=== PATIENT | female | born 1965 | race Caucasian/White ===

== ENCOUNTER 2016-07-09 19:18 | Observation (INO) | payer OTHER ==
[~2016-07-09] VITALS: Ht 160 cm; Wt 78.0 kg
--- NOTE | 2016-07-09 19:49 | DIAGNOSTIC IMAGING REPORT ---
PROCEDURE: CT HEAD WITHOUT CONTRAST INDICATION: STROKE TECHNIQUE: Axial CT images were acquired through the head. Coronal and sagittal reformations were created. COMPARISON: None. FINDINGS: No intracranial hemorrhage or extraaxial fluid collections. Ventricles are normal in size, shape and position. There is no mass, mass effect or midline shift. In the left frontal white matter, there are a few ill-defined areas of hypodensity. In the left thalamus/posterior limb internal capsule, there is a focal curvilinear lacunar infarct. More remote lacunar infarct is also seen in the left basal ganglia/external capsule and a questionable lacuna in the right basal ganglia. The aranda-white matter differentiation is normal. No cortical defects. The calvarium is intact. The paranasal sinuses and mastoid air cells are normally aerated. The extracranial soft tissues and orbits are normal. IMPRESSION: 1. A few ill-defined white matter hypodensities in the left frontal lobe suspicious for acute/subacute small-vessel ischemic events. 2. There are at least two well-defined areas, one in left thalamus/internal capsule, and the other left basal ganglia/external capsule suggestive of remote lacunar infarcts. 3. No evidence of acute hemorrhage or mass effect. 4. Findings discussed with Dr. Menjivar at [address] scans at this facility use dose modulation, iterative reconstruction, and/or weight-based dosing when appropriate to reduce radiation dose to as low as reasonably achievable.
--- NOTE | 2016-07-09 20:11 | DIAGNOSTIC IMAGING REPORT ---
PROCEDURE: XR CHEST 1 VIEW INDICATION: STROKE TECHNIQUE: Single view chest. 1957 hours COMPARISON: None FINDINGS: Low lung volumes. Normal cardiomediastinal contour and central vessels. Strandy retrocardiac density. Otherwise clear lungs. No effusion or pneumothorax. Intact osseous structures. IMPRESSION: 1. Low lung volumes. 2. Probable retrocardiac atelectasis versus consolidation. Correlate clinically.
--- NOTE | 2016-07-09 21:03 | ED NURSING NOTES ---
Clinical Report - Nurses [facility] [address] [place] [address] 07/09/2016 19:20 [id number] Triage time 19:23. Acuity: LEVEL 2. Chief Complaint: WEAKNESS and IMPAIRED SPEECH and (slurred speech). ANDREI COMA SCORE: Andrei Coma Scale: 15- eyes open spontaneously (4); best verbal response- oriented x 4 (5); best motor response- obeys commands (6). --19:30 Andriy Jaime R.N. 19:23 07/09/16. BP: 154/79. HR: 81. RR: 18. O2 saturation: 96%. Temp: 98.2 F (oral). Pain level now: 0/10. --19:30 Andriy Jaime R.N. Height/Length: 63 inches Per Patient. --19:30 Andriy Jaime R.N.. Weight: 79.7 kg measured. BMI: 31.1. --19:41 Andriy Jaime R.N. Medications Albuterol Sulfate Inhalation. MetFORMIN HCl Oral. NovoLIN N Subcutaneous 30 units , Every AM and PM. --20:50 Andriy Jaime R.N. Allergies Codeine. Iodine. --20:50 Andriy Jaime R.N. History Arrived by private vehicle. Historian: patient and family. Accompanied by family. This started today. Patient was last known well (1830 PM). ( with difficulty balancing, per daughter). SOCIAL HX: Never smoker. No alcohol use or drug use. --19:30 Andriy Jaime R.N. PROBLEMS: CVA - Cerebrovascular Accident. Fall. Dizziness. Candidiasis. Kidney cancer. Back Pain. Scoliosis. Type 1 DM. --20:50 Andriy Jaime R.N. Hypertension. --23:16 Andriy Jaime R.N. ADDITIONAL SURGERIES: Hysterectomy. Nephrectomy [2001]. --20:50 Andriy Jaime R.N. Interventions ID band on patient. To treatment room. --19:30 Andriy Jaime R.N. PHYSICAL ASSESSMENT To room via wheelchair. GENERAL / NEURO / PSYCH: Awake. Oriented X 4. Alert. Mild slurred speech. CVS: Capillary refill less than 2 seconds. SKIN: Skin is warm and dry. --19:43 Andriy Jaime R.N. ( Patient passes swallow study without difficulty, no coughing or choking, no signs of distress or difficulty swallowing water.). --20:04 Andriy Jaime R.N. ( IV does not draw suffiently for blood draw. Lab has been called and blood draw requested.). --20:07 Andriy Jaime R.N. GENERAL / NEURO / PSYCH: NIH Stroke Scale: score 3. Performed at 2034. Pt and patient's daughter state that facial droop is baseline from her previous stroke. Level of Consciousness: alert (0). LOC Questions: both (0). LOC Commands: both (0). Best gaze: normal (0). Visual field loss: none (0). Facial palsy: partial (2). Motor arm: no drift right arm (0) and no drift left arm (0). Motor leg: no drift right leg (0) and no drift left leg (0). Limb ataxia: none (0). Sensory loss: none (0). Aphasia: none (0). Dysarthria: mild to moderate (1). Extinction and inattention: none (0). --20:45 Andriy Jaime R.N. ( Lab has come to draw the patient's blood, and has already left the ER with it in their possession.). --20:46 Andriy Jaime R.N. CVS: Normal sinus rhythm noted. --21:10 Andriy Jaime R.N. ( Patient on terra cotta setter on arrival). --21:10 Andriy Jaime R.N. NURSING PROGRESS NOTES biodiesel technology manager, pulse oximeter and NIBP monitor placed on patient. Patient gowned. Head of bed elevated. Reassurance given. Two patient identifiers checked. Call light placed in reach. Side rails up x 1. Bed placed in lowest position. Brakes of bed on. Patient ready for evaluation- chart flagged. --19:31 Andriy Jaime R.N. Patient ready for evaluation- chart flagged. --19:31 Andriy Jaime R.N. ( at 1925-Code stroke called. 1928-Patient taken to CT scan.). --19:44 Andriy Jaime R.N. Point of care testing: performed by nurse. Glucose: 251. --19:49 Andriy Jaime R.N. 19:54 07/09/2016 Site #1 started via IV in the left hand with an 20g angiocath, with aseptic technique; three attempts. Saline lock flushed with 10 mL saline (Started by LILI Rogers (incendiaries supervisor)). --19:54 Andriy Jaime R.N. ( Xray present with patient). --19:54 Andriy Jaime R.N. EKG time: (1945). EKG was ordered, performed by a tech and shown to the ED physician. --20:03 Chago Bloom, ER Supervisor Of Communications ( Daughter of patient states that the patient's slurred speech is better now than what it was at 1830 today when she first noticed it.). --20:51 Andriy Jaime R.N. ( patient urinated in bedside commode, assisted by nurse). --21:26 Andriy Jaime R.N. ( I gave the patient half of a sandwich with a diet sprite to drink, with the approval of Dr. Menjivar.). --21:26 Andriy Jaime R.N. Patient waiting for radiology results. --21:41 Andriy Jaime R.N. ( Ultra Sound at patient's bedside). --22:25 Andriy Jaime R.N. ( US at bedside completed). --23:10 Andriy Jaime R.N. Care transferred and report given (LILI Amaral (2nd floor)). --23:25 Andriy Jaime R.N. DISPOSITION / DISCHARGE Departure time: 23:26. Condition at departure: stable. Admitted to Acute Care. Transported via stretcher by transport team. Report was given to a nurse. Report included patient's care, treatment, medications, reviewed medication reconcilliation, and condition (including any recent changes or anticipated changes). All questions were answered. Report was acknowledged. (LILI Amaral). Patient's personal items include: shirt, pants and glasses; items were transported with the patient. --23:27 Andriy Jaime R.N. 23:26 07/09/16. BP: 149/106. HR: 75. RR: 20 (regular and unlabored). O2 saturation: 100% on room air. --23:27 Andriy Jaime R.N. Locked/Released at 07/09/2016 23:28 by Andriy Jaime R.N.
--- NOTE | 2016-07-09 21:03 | ED CLINICAL REPORT ---
Clinical Report - Physicians/Mid Levels [facility] [address] [place] [address] 07/09/2016 19:20 Patient: BRETT WALTON Time Seen: 19:29 Jul 09 2016. Arrived- By private vehicle. Historian- patient and family. CPT: ER phys charges level 5 plus (#044428). EKG interpretation (#[id number]). HISTORY OF PRESENT ILLNESS Chief Complaint: WEAKNESS, DIFFICULTY WALKING and IMPAIRED SPEECH. CODE STROKE CALLED. This started just prior to arrival and is still present. The patient has had weakness. She has had difficulty with speech. She has had difficulty walking. At its maximum deficit described as moderate. When seen in the E.D.,deficit described as moderate. No dizziness, altered mental status, seizure or blackouts. Usually is alert and oriented X3 and has normal mobility. (Has chronic right facial droop.). Similar symptoms previously: Milder (2 years ago). Hospitalized. Evaluation/treatment- Raad Rankin. Diagnosis: CVA. Recent medical care: Not recently seen/assessed. REVIEW OF SYSTEMS No fever, headache, head injury, chest pain or difficulty breathing. No cough, sputum production, sore throat or throat or abdominal pain. No diarrhea, black stools, difficulty with urination, skin rash or joint pain. No vomiting, diabetic symptoms or easy bruising. The patient has had difficulty walking. All systems otherwise negative, except as recorded above. 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 Medications: Albuterol Sulfate Inhalation. MetFORMIN HCl Oral. NovoLIN N Subcutaneous 30 units , Every AM and PM. Allergies: Codeine. Iodine. SOCIAL HISTORY Never smoker. No alcohol use or drug use. ADDITIONAL NOTES The nursing notes have been reviewed. PHYSICAL EXAM Vital Signs: 07/09/2016 19:23 BP: 154/79. HR: 81. RR: 18. O2 saturation: 96%. Temp: 98.2 F. Pain level now: 0/10. Appearance: Alert. No acute distress. Head: Head atraumatic. ENT: Normal ENT inspection. Airway intact. Pharynx normal. Neck: Normal inspection. Neck supple. No meningeal signs or carotid bruit. CVS: Normal heart rate and rhythm. Heart sounds normal. Pulses normal. Respiratory: No respiratory distress. Breath sounds normal. Abdomen: Soft and nontender. Back: Normal inspection. Skin: Skin warm. Normal skin color. No rash. Extremities: Extremities exhibit normal ROM. No lower extremity edema. Neuro: NIH Stroke Scale: score 2. Level of Consciousness: alert (0). LOC Questions: both (0). LOC Commands: both (0). Best gaze: normal (0). Visual field loss: none (0). Facial palsy: normal (0) and (chronic and none new). Motor arm: no drift right arm (0) and no drift left arm (0). Motor leg: no drift right leg (0) and no drift left leg (0). Limb ataxia: none (0). Sensory loss: none (0). Aphasia: mild to moderate (1). Dysarthria: mild to moderate (1). Extinction and inattention: none (0). No depression of the gag reflex. (Pt has chronic right facial droop that is residual from prior CVA. Pt and daughter says this is no worse than baseline.). LABS, X-RAYS, AND EKG EKG: Normal sinus rhythm. Chest X-ray: Normal Chest X-Ray. CT Head: (Scattered areas of hypodensity right frontal white matter. Evidence old CVA in left internal capsule and basal ganglia. No edema or hemorrhage.). Head CT performed without contrast. The study was interpreted by the radiologist and discussed with the radiologist. Laboratory Tests: [id number]: (HILARY: 07/10/2016 05:29) ( MsgRcvd 07/10/2016 05:51) Final results Test Result Flag Units (Reference) CALCULATED A1C 8.6 H % (4.5-6.2) The [place] [employer] recommends that aprimary goal of therapy should be a HbA1c of <7% and thatphysicians should reevaluate the treatment regimen inpatients with HbA1c values consistently >8%. ESTIMATED AVERAGE GLUCOSE 200 mg/dL BMP: (HILARY: 07/10/2016 05:29) ( MsgRcvd 07/10/2016 06:03) Final results Test Result Flag Units (Reference) GLUCOSE 252 H mg/dL (70-110) BUN 16 mg/dL (7-18) CREATININE 0.7 mg/dL (0.6-1.3) Estimated GFR >60 mL/min Estimated GFR- >60 mL/min Note: Persistent reduction over 3 months in eGFR<60 mL/min/1.73 m2 defines CKD. Patients with eGFR values>=60 mL/min/1.73 m2 may also have CKD if evidence ofpersistent proteinuria. Additional information may be foundat www.kidney.org. SODIUM 138 mmol/L (136-145) POTASSIUM 3.7 mmol/L (3.5-5.1) CHLORIDE 101 mmol/L (98-107) CARBON DIOXIDE 28 mmol/L (21-32) CALCIUM 9.2 mg/dL (8.5-10.1) CHOLESTEROL 176 mg/dL (140-200) TRIGLYCERIDES 136 mg/dL (30-200) HDL CHOLESTEROL 44 mg/dL (32-96) LDL,CALCULATED 105 mg/dL Normal range for LDL by direct measurement is 66-178The LDL reported is a calculated value and may approximatea direct measurement. CHOL/HDL 4.0 LDL/HDL 2.4 CORONARY RISK FACTOR 0.8 (0.4-1.0) CBC w Diff: (HILARY: 07/09/2016 20:30) ( MsgRcvd 07/09/2016 20:45) Final results Test Result Flag Units (Reference) WHITE BLOOD COUNT 6.1 K/uL (4.5-11.5) RED BLOOD COUNT 4.33 M/uL (4.00-5.20) HEMOGLOBIN 13.4 gm/dL (12.0-16.0) HEMATOCRIT 39.4 % (36.0-46.0) MEAN CELL VOLUME 91 fL (80-100) MEAN CORPUSCULAR HGB 31 pg (26-34) MEAN CORPUSCULAR HGB CONC 34 g/dL (31-37) RED CELL DISTRIBUTION WIDTH 13.2 % (11.6-14.8) PLATELET COUNT 252 K/uL (150-400) NEUTROPHIL % 50.9 % (50-75) LYMPH % 38.9 % (25-40) MONO % 6.6 % (3-14) EOSINOPHIL % 2.9 % (0-4) BASOPHIL % 0.7 % (0-2) CHEM 13 PANEL: (HILARY: 07/09/2016 20:30) ( MsgRcvd 07/09/2016 21:03) Final results Test Result Flag Units (Reference) GLUCOSE 256 H mg/dL (70-110) BUN 16 mg/dL (7-18) CREATININE 0.7 mg/dL (0.6-1.3) Estimated GFR >60 mL/min Estimated GFR- >60 mL/min Note: Persistent reduction over 3 months in eGFR<60 mL/min/1.73 m2 defines CKD. Patients with eGFR values>=60 mL/min/1.73 m2 may also have CKD if evidence ofpersistent proteinuria. Additional information may be foundat www.kidney.org. SODIUM 139 mmol/L (136-145) POTASSIUM 3.7 mmol/L (3.5-5.1) CHLORIDE 102 mmol/L (98-107) CARBON DIOXIDE 29 mmol/L (21-32) CALCIUM 9.5 mg/dL (8.5-10.1) TOTAL PROTEIN 6.9 g/dL (6.4-8.2) ALBUMIN 3.6 g/dL (3.3-5.0) BILIRUBIN, TOTAL 0.7 mg/dL (0.0-1.0) ALKALINE PHOSPHATASE 114 U/L (46-116) AST (SGOT) 11 L U/L (15-37) ALT (SGPT) 21 U/L (12-78) CPK 38 U/L (24-260) MAGNESIUM 1.7 L mg/dL (1.8-2.4) TROPONIN I <0.05 L ng/mL (0.00-1.5) TROPONIN REFERENCE RANGE:<0.1 NEGATIVE0.1-1.5 INDETERMINANT>1.5 POSITIVE . PROGRESS AND PROCEDURES Course of Care: 20:10 07/09/16. Pt feels she does not have any deficit now and daughter says her speech is better now. Pt speech is improved since admission. TPA not considered due to improved exam and low NIH stroke scale. Carotid doppler pending. Discussed case with on-call health care provider, (Lola). Reviewed test results. Agreed upon treatment plan and decision to admit. Health care provider will see patient in ED. Patient/family counseled. Old medical records ordered. Disposition orders written. Disposition: Admitted to Acute Care. 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 Uncontrolled essential hypertension. IDDM. (Electronically signed by Terrell Menjivar MD 07/10/2016 11:17)
--- NOTE | 2016-07-09 21:03 | ED ORDER SUMMARY ---
..... Patient: BRETT WALTON [facility] VisitID: [id number] [address] [place] [address] 50y, F Registration Date/Time: 07/09/2016 ORDER SHEET Weight: 79.7 kg (measured) Allergies: Codeine, Iodine GENERAL ORDERS: CT Head wo Cont Urgent (19:30 07/09/2016 DDean R.N. verbal order read back to Darling ABRAMS) (Ack 19:33 Carlos) (19:39 Mel) Chest 1V Urgent (19:31 07/09/2016 Darling ABRAMS) (Ack 19:32 Carlos) (20:07 Mel) Crew Chief (Continuous) (19:31 07/09/2016 Darling ABRAMS) (Ack 19:33 Carlos) (19:41 DDavis R.N.) Cardiac Panel Stat (19:07/09/2016 Darling ABRAMS) (Ack 19:32 Carlos) (20:49 DDavis R.N.) Pulse oximeter (19:31 07/09/2016 Darling ABRAMS) (Ack 19:33 Carlos) (19:41 DDavis R.N.) EKG - ER Stat (19:07/09/2016 Darling ABRAMS) (Ack 19:33 Carlos) (19:45 CHategekimana) US Carotid Doppler Bilat Urgent (20:55 07/09/2016 Darling ABRAMS) (Ack 20:59 Carlos) MEDICATION ORDERS: IV FLUIDS: IV Saline Lock (19:07/09/2016 Darling ABRAMS) (Ack 19:41 DDavis R.N.) (19:54 DDavis R.N.) ORDER SHEET NOTES: [Electronically signed by Andriy Jaime R.N. (23:28 07/09/2016)] [Electronically signed by Terrell Menjivar MD (11:17 07/10/2016)] [Electronically locked/signed by Andriy Jaime R.N. (23:28 07/09/2016)]
--- NOTE | 2016-07-09 21:03 | ED NURSING NOTES ---
Clinical Report - Nurses [facility] [address] [place] [address] 07/09/2016 19:20 [id number] Triage time 19:23. Acuity: LEVEL 2. Chief Complaint: WEAKNESS and IMPAIRED SPEECH and (slurred speech). ANDREI COMA SCORE: Andrei Coma Scale: 15- eyes open spontaneously (4); best verbal response- oriented x 4 (5); best motor response- obeys commands (6). --19:30 Andriy Jaime R.N. 19:23 07/09/16. BP: 154/79. HR: 81. RR: 18. O2 saturation: 96%. Temp: 98.2 F (oral). Pain level now: 0/10. --19:30 Andriy Jaime R.N. Height/Length: 63 inches Per Patient. --19:30 Andriy Jaime R.N.. Weight: 79.7 kg measured. BMI: 31.1. --19:41 Andriy Jaime R.N. Medications Albuterol Sulfate Inhalation. MetFORMIN HCl Oral. NovoLIN N Subcutaneous 30 units , Every AM and PM. --20:50 Andriy Jaime R.N. Allergies Codeine. Iodine. --20:50 Andriy Jaime R.N. History Arrived by private vehicle. Historian: patient and family. Accompanied by family. This started today. Patient was last known well (1830 PM). ( with difficulty balancing, per daughter). SOCIAL HX: Never smoker. No alcohol use or drug use. --19:30 Andriy Jaime R.N. PROBLEMS: CVA - Cerebrovascular Accident. Fall. Dizziness. Candidiasis. Kidney cancer. Back Pain. Scoliosis. Type 1 DM. --20:50 Andriy Jaime R.N. Hypertension. --23:16 Andriy Jaime R.N. ADDITIONAL SURGERIES: Hysterectomy. Nephrectomy [2001]. --20:50 Andriy Jaime R.N. Interventions ID band on patient. To treatment room. --19:30 Andriy Jaime R.N. PHYSICAL ASSESSMENT To room via wheelchair. GENERAL / NEURO / PSYCH: Awake. Oriented X 4. Alert. Mild slurred speech. CVS: Capillary refill less than 2 seconds. SKIN: Skin is warm and dry. --19:43 Andriy Jaime R.N. ( Patient passes swallow study without difficulty, no coughing or choking, no signs of distress or difficulty swallowing water.). --20:04 Andriy Jaime R.N. ( IV does not draw suffiently for blood draw. Lab has been called and blood draw requested.). --20:07 Andriy Jaime R.N. GENERAL / NEURO / PSYCH: NIH Stroke Scale: score 3. Performed at 2034. Pt and patient's daughter state that facial droop is baseline from her previous stroke. Level of Consciousness: alert (0). LOC Questions: both (0). LOC Commands: both (0). Best gaze: normal (0). Visual field loss: none (0). Facial palsy: partial (2). Motor arm: no drift right arm (0) and no drift left arm (0). Motor leg: no drift right leg (0) and no drift left leg (0). Limb ataxia: none (0). Sensory loss: none (0). Aphasia: none (0). Dysarthria: mild to moderate (1). Extinction and inattention: none (0). --20:45 Andriy Jaime R.N. ( Lab has come to draw the patient's blood, and has already left the ER with it in their possession.). --20:46 Andriy Jaime R.N. CVS: Normal sinus rhythm noted. --21:10 Andriy Jaime R.N. ( Patient on telemetry monitor on arrival). --21:10 Andriy Jaime R.N. NURSING PROGRESS NOTES cardiac monitor technician, pulse oximeter and NIBP monitor placed on patient. Patient gowned. Head of bed elevated. Reassurance given. Two patient identifiers checked. Call light placed in reach. Side rails up x 1. Bed placed in lowest position. Brakes of bed on. Patient ready for evaluation- chart flagged. --19:31 Andriy Jaime R.N. Patient ready for evaluation- chart flagged. --19:31 Andriy Jaime R.N. ( at 1925-Code stroke called. 1928-Patient taken to CT scan.). --19:44 Andriy Jaime R.N. Point of care testing: performed by nurse. Glucose: 251. --19:49 Andriy Jaime R.N. 19:54 07/09/2016 Site #1 started via IV in the left hand with an 20g angiocath, with aseptic technique; three attempts. Saline lock flushed with 10 mL saline (Started by LILI Rogers (hot dip tinning supervisor)). --19:54 Andriy Jaime R.N. ( Xray present with patient). --19:54 Andriy Jaime R.N. EKG time: (1945). EKG was ordered, performed by a tech and shown to the ED physician. --20:03 Chago Bloom, ER Pipe Fitter Supervisor ( Daughter of patient states that the patient's slurred speech is better now than what it was at 1830 today when she first noticed it.). --20:51 Andriy Jaime R.N. ( patient urinated in bedside commode, assisted by nurse). --21:26 Andriy Jaime R.N. ( I gave the patient half of a sandwich with a diet sprite to drink, with the approval of Dr. Menjivar.). --21:26 Andriy Jaime R.N. Patient waiting for radiology results. --21:41 Andriy Jaime R.N. ( Ultra Sound at patient's bedside). --22:25 Andriy Jaime R.N. ( US at bedside completed). --23:10 Andriy Jaime R.N. Care transferred and report given (LILI Amaral (2nd floor)). --23:25 Andriy Jaime R.N. DISPOSITION / DISCHARGE Departure time: 23:26. Condition at departure: stable. Admitted to Acute Care. Transported via stretcher by transport team. Report was given to a nurse. Report included patient's care, treatment, medications, reviewed medication reconcilliation, and condition (including any recent changes or anticipated changes). All questions were answered. Report was acknowledged. (LILI Amaral). Patient's personal items include: shirt, pants and glasses; items were transported with the patient. --23:27 Andriy Jaime R.N. 23:26 07/09/16. BP: 149/106. HR: 75. RR: 20 (regular and unlabored). O2 saturation: 100% on room air. --23:27 Andriy Jaime R.N. Locked/Released at 07/09/2016 23:28 by Andriy Jaime R.N.
--- NOTE | 2016-07-09 21:03 | ED ORDER SUMMARY ---
..... Patient: BRETT WALTON OrderSheet [facility] VisitID: [id number] [address] [place] [address] 50y, F Registration Date/Time: 07/09/2016 ORDER SHEET Weight: 79.7 kg (measured) Allergies: Codeine, Iodine GENERAL ORDERS: CT Head wo Cont Urgent (19:30 07/09/2016 DDean R.N. verbal order read back to Darling ABRAMS) (Ack 19:33 Carlos) (19:39 Mel) Chest 1V Urgent (19:31 07/09/2016 Darling ABRAMS) (Ack 19:32 Carlos) (20:07 Mel) Surgical Assistant Certified (Continuous) (19:31 07/09/2016 Darling ABRAMS) (Ack 19:33 Carlos) (19:41 DDavis R.N.) Cardiac Panel Stat (19:07/09/2016 Darling ABRAMS) (Ack 19:32 Carlos) (20:49 DDavis R.N.) Pulse oximeter (19:31 07/09/2016 Darling ABRAMS) (Ack 19:33 Carlos) (19:41 DDavis R.N.) EKG - ER Stat (19:07/09/2016 Darling ABRAMS) (Ack 19:33 Carlos) (19:45 CHategekimana) US Carotid Doppler Bilat Urgent (20:55 07/09/2016 Darling ABRAMS) (Ack 20:59 Carlos) MEDICATION ORDERS: IV FLUIDS: IV Saline Lock (19:07/09/2016 Darling ABRAMS) (Ack 19:41 DDavis R.N.) (19:54 DDavis R.N.) ORDER SHEET NOTES: [Electronically signed by Andriy Jaime R.N. (23:28 07/09/2016)] [Electronically signed by Terrell Menjivar MD (11:17 07/10/2016)] [Electronically locked/signed by Andriy Jaime R.N. (23:28 07/09/2016)]
[2016-07-09 22:05] VITALS: BP 161/76
--- NOTE | 2016-07-09 22:48 | Progress Note ---
Subjective General Admission History and Physical Examination Patient Name: Luz Viera Admission Date: July 09, 2016 Primary Care Provider: Unknown Attending Physician: Basil Davila M.D. Admitting Physician: Basil Davila M.D. Code Status: Full Code Room: 211 SUBJECTIVE Historian: Patient and family Reliability: Fair-good Chief Complaint: Speech difficulty, difficulty walking History of Present Illness: The patient is a 50-year-old white female with a significant past medical history of type 2 diabetes mellitus, cerebrovascular disease status post CVA, who presented to [facility] emergency room on the day of admission secondary to complaints of difficulty with speech and walking. [facility] ER evaluation was consistent with TIA with complete resolution of symptoms during the patient's ER visit. Secondary to the above, the patient was admitted by Basil Davila M.D. for further evaluation and treatment. PAST MEDICAL HISTORY Illnesses: 1. Type 2 diabetes mellitus 2. Cerebrovascular disease status post CVA 3. Carpal tunnel syndrome-right side 4. Hypertension 5. Hyperlipidemia Allergies: 1. Iodine 2. Codeine Medications: 1. Lipitor 80 mg by mouth daily 2. Cymbalta 60 mg by mouth daily 3. Levemir insulin subcutaneous daily at bedtime dosage unknown 4. Lisinopril 10 mg by mouth daily 5. Humalog insulin sliding scale before meals and at bedtime 6. Ibuprofen 600 mg by mouth 3 times a day Surgery: 1. Injuries: 1. No significant Hospitalizations: 1. 2014, [facility]-CVA FAMILY HISTORY Parents: 1. Father, Nidhi, , 62, myocardial infarction 2. Mother, Noy, , 81, myocardial infarction Siblings: 1. The patient had 5 male siblings, 4 female siblings, with history of coronary artery disease Children: 1. Female, Teresa, living, 26, healthy 2. Male, Bc, living, 24, healthy Other significant family history: None SOCIAL HISTORY 1. Marital Status: Single 2. Buddhism: Synagogue 3. Education: High school 4. 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 Occupational health exposures: None HABITS 1. Tobacco: None 2. Drugs: None 3. Alcohol: None 4. Caffeine: 2 cans soft drink per day HEALTH SUPERVISION Item/Test 1. Colonoscopy: Not previously obtained 2. Pap smear: 2016 3. Pelvic exam: 2016 4. Mammogram: 2015 5. Electrocardiogram: 2016 6. Blood glucose 2017 IMMUNIZATIONS: 1. Pneumococcal: No previous 2. Influenza: 2015 3. Tetanus: Obtained in past 10 years date unknown ADVANCED DIRECTIVES: 1. Living well: No 2. POLST: No 3. Code Status: FULL CODE 4. Durable Power Cover [employer] Health care: Yes 5. Donor card: Yes REVIEW OF SYSTEMS Remarkable for those things stated in the history of present illness and past medical history. Seventeen point review of system completed with the following notable findings: Eyes: Corrective lenses Lungs: Shortness of breath Physical Exam Vital Signs / I&Os Vital Signs Date Time Temp Pulse Resp B/P Pulse O2 O2 Flow FiO2 Ox Delivery Rate 07/09 2205 97.5 84 16 161/76 98 I&O 07/10 0000 07/09 1600 07/09 0800 Intake Total 0 Output Total 0 Balance 0 General Appearance Alert, Oriented X3, Cooperative, No acute distress HEENT Atraumatic, PERRLA, EOMI, Moist mucous membranes Lungs Clear to auscultation, Normal air movement Neck Supple, No JVD, No masses, 2+ carotid pulse wo bruit Cardiovascular Regular rate and rhythm, Normal S1 and S2, Grade 1/6 systolic murmur. Abdomen Normal bowel sounds, Soft, No tenderness, No guarding Extremities No cyanosis, No clubbing, No edema, splint right wrist secondary to carpal tunnel syndrome Neurological Normal speech, right facial droop. Questionable minimal weakness right side. Psych/Mental Status Mental status normal, Mood normal LAB Results Laboratory Tests 07/09 2029 Chemistry Plasma Sodium (136 - 145 mmol/L) 139 Plasma Potassium (3.5 - 5.1 mmol/L) 3.7 Plasma Chloride (98 - 107 mmol/L) 102 CO2 (Enzymatic) (21 - 32 mmol/L) 29 BUN (7 - 18 mg/dL) 16 Creatinine (0.6 - 1.3 mg/dL) 0.7 Est GFR ( Amer) (mL/min) >60 Est GFR (Non-Af Amer) (mL/min) >60 Glucose (70 - 110 mg/dL) 256 Plasma Calcium (8.5 - 10.1 mg/dL) 9.5 Plasma Magnesium (1.8 - 2.4 mg/dL) 1.7 Total Bilirubin (0.0 - 1.0 mg/dL) 0.7 AST (15 - 37 U/L) 11 ALT (12 - 78 U/L) 21 Alkaline Phosphatase (46 - 116 U/L) 114 Creatine Kinase (24 - 260 U/L) 38 Troponin (0.00 - 1.5 ng/mL) <0.05 Total Protein (6.4 - 8.2 g/dL) 6.9 Albumin (3.3 - 5.0 g/dL) 3.6 Hematology WBC (4.5 - 11.5 K/uL) 6.1 RBC (4.00 - 5.20 M/uL) 4.33 Hgb (12.0 - 16.0 gm/dL) 13.4 Hct (36.0 - 46.0 %) 39.4 MCV (80 - 100 fL) 91 MCH (26 - 34 pg) 31 RDW (11.6 - 14.8 %) 13.2 Neut % (Auto) (50 - 75 %) 50.9 Lymph % (Auto) (25 - 40 %) 38.9 [place] % (Auto) (3 - 14 %) 6.6 Eos % (Auto) (0 - 4 %) 2.9 Baso % (Auto) (0 - 2 %) 0.7 Plt Count, EDTA (150 - 400 K/uL) 252 PUBS MCHC (31 - 37 g/dL) 34 Microbiology Date/Time Procedure - Status Source Growth 07/10 UNK MRSA Screen - ORD NOSE Imaging CT Scan Head IMPRESSION: 1. A few ill-defined white matter hypodensities in the left frontal lobe suspicious for acute/subacute small-vessel ischemic events. 2. There are at least two well-defined areas, one in left thalamus/internal capsule, and the other left basal ganglia/external capsule suggestive of remote lacunar infarcts. 3. No evidence of acute hemorrhage or mass effect. 4. Findings discussed with Dr. Menjivar at 1942 hours. Dictated by: IRMA BENOIT MD D: STEFANIA;07/09/161948 Chest X-Ray IMPRESSION: 1. Low lung volumes. 2. Probable retrocardiac atelectasis versus consolidation. Correlate clinically. Dictated by: IRMA BENOIT MD D: STEFANIA;07/09/162009 Carotid Doppler and Ultrasound-Bilateral MPRESSION: 1. No hemodynamically significant stenosis in either carotid system. 2. Mild noncalcified plaque in the carotid bulbs. The patient may benefit from statin therapy. 3. Antegrade vertebral artery flow bilaterally. Dictated by: IRMA BENOIT MD D: STEFANIA;07/09/16 0209 Assessment and Plan Problem List 1. TIA (transient ischemic attack) Status Acute Onset Date Unknown Plan -Patient presents with history of transient speech difficulty and increased difficulty with ambulation -Symptoms mild -Completely resolved at this time -CT scan shows no acute changes -Carotid Doppler and ultrasound unremarkable -Consider MRI in a.m. -Aspirin 325 mg by mouth daily -Physical therapy consultation -No swallowing difficulties, cardiac/consistent carbohydrate diet. 2. Hyperlipidemia Status Chronic Onset Date Unknown Plan -Patient with history of hyperlipidemia -Continue Lipitor 80 mg by mouth daily -Monitor 3. Hypertension Status Chronic Onset Date Unknown Plan -Patient with history of hypertension -Continue lisinopril 10 mg by mouth daily -Low-salt diet -Monitor 4. Diabetes mellitus Status Chronic Onset Date Unknown Plan -Patient with history of type 2 diabetes mellitus -Insulin sliding scale -Place patient back on Levemir/Humalog when taking well orally -Check hemoglobin A1c Current status: Fair, unstable Anticipated discharge date: Anticipated discharge in 24-48 hours Anticipated discharge placement: Home Patient care time: Time spent in chart review, patient interview, physical exam, CPOE, and care documentation: 70 minutes Visit to patient today: 2 Complexity of care: High Initial patient evaluation: Emergency department E&M Codes Admission: Obsv-Comp/High/[id number]
--- NOTE | 2016-07-09 22:48 | Progress Note ---
Subjective General Admission History and Physical Examination Patient Name: Luz Viera Admission Date: July 09, 2016 Primary Care Provider: Unknown Attending Physician: Basil Davila M.D. Admitting Physician: Basil Davila M.D. Code Status: Full Code Room: 211 SUBJECTIVE Historian: Patient and family Reliability: Fair-good Chief Complaint: Speech difficulty, difficulty walking History of Present Illness: The patient is a 50-year-old white female with a significant past medical history of type 2 diabetes mellitus, cerebrovascular disease status post CVA, who presented to [facility] emergency room on the day of admission secondary to complaints of difficulty with speech and walking. [facility] ER evaluation was consistent with TIA with complete resolution of symptoms during the patient's ER visit. Secondary to the above, the patient was admitted by Basil Davila M.D. for further evaluation and treatment. PAST MEDICAL HISTORY Illnesses: 1. Type 2 diabetes mellitus 2. Cerebrovascular disease status post CVA 3. Carpal tunnel syndrome-right side 4. Hypertension 5. Hyperlipidemia Allergies: 1. Iodine 2. Codeine Medications: 1. Lipitor 80 mg by mouth daily 2. Cymbalta 60 mg by mouth daily 3. Levemir insulin subcutaneous daily at bedtime dosage unknown 4. Lisinopril 10 mg by mouth daily 5. Humalog insulin sliding scale before meals and at bedtime 6. Ibuprofen 600 mg by mouth 3 times a day Surgery: 1. Injuries: 1. No significant Hospitalizations: 1. 2014, [facility] FAMILY HISTORY Parents: 1. Father, Nidhi, , 62, myocardial infarction 2. Mother, Noy, , 81, myocardial infarction Siblings: 1. The patient had 5 male siblings, 4 female siblings, with history of coronary artery disease Children: 1. Female, Teresa, living, 26, healthy 2. Male, Bc, living, 24, healthy Other significant family history: None SOCIAL HISTORY 1. Marital Status: Single 2. Jew: Scientology 3. Education: High school 4. Employment History: Unemployed, disabled, worked in the past in laundry at long-term 5. Occupational health exposures: None HABITS 1. Tobacco: None 2. Drugs: None 3. Alcohol: None 4. Caffeine: 2 cans soft drink per day HEALTH SUPERVISION Item/Test 1. Colonoscopy: Not previously obtained 2. Pap smear: 2016 3. Pelvic exam: 2016 4. Mammogram: 2015 5. Electrocardiogram: 2016 6. Blood glucose 2017 IMMUNIZATIONS: 1. Pneumococcal: No previous 2. Influenza: 2015 3. Tetanus: Obtained in past 10 years date unknown ADVANCED DIRECTIVES: 1. Living well: No 2. POLST: No 3. Code Status: FULL CODE 4. 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 Donor card: Yes REVIEW OF SYSTEMS Remarkable for those things stated in the history of present illness and past medical history. Seventeen point review of system completed with the following notable findings: Eyes: Corrective lenses Lungs: Shortness of breath Physical Exam Vital Signs / I&Os Vital Signs Date Time Temp Pulse Resp B/P Pulse O2 O2 Flow FiO2 Ox Delivery Rate 07/09 2205 97.5 84 16 161/76 98 I&O 07/10 0000 07/09 1600 07/09 0800 Intake Total 0 Output Total 0 Balance 0 General Appearance Alert, Oriented X3, Cooperative, No acute distress HEENT Atraumatic, PERRLA, EOMI, Moist mucous membranes Lungs Clear to auscultation, Normal air movement Neck Supple, No JVD, No masses, 2+ carotid pulse wo bruit Cardiovascular Regular rate and rhythm, Normal S1 and S2, Grade 1/6 systolic murmur. Abdomen Normal bowel sounds, Soft, No tenderness, No guarding Extremities No cyanosis, No clubbing, No edema, splint right wrist secondary to carpal tunnel syndrome Neurological Normal speech, right facial droop. Questionable minimal weakness right side. Psych/Mental Status Mental status normal, Mood normal LAB Results Laboratory Tests 07/09 2029 Chemistry Plasma Sodium (136 - 145 mmol/L) 139 Plasma Potassium (3.5 - 5.1 mmol/L) 3.7 Plasma Chloride (98 - 107 mmol/L) 102 CO2 (Enzymatic) (21 - 32 mmol/L) 29 BUN (7 - 18 mg/dL) 16 Creatinine (0.6 - 1.3 mg/dL) 0.7 Est GFR ( Amer) (mL/min) >60 Est GFR (Non-Af Amer) (mL/min) >60 Glucose (70 - 110 mg/dL) 256 Plasma Calcium (8.5 - 10.1 mg/dL) 9.5 Plasma Magnesium (1.8 - 2.4 mg/dL) 1.7 Total Bilirubin (0.0 - 1.0 mg/dL) 0.7 AST (15 - 37 U/L) 11 ALT (12 - 78 U/L) 21 Alkaline Phosphatase (46 - 116 U/L) 114 Creatine Kinase (24 - 260 U/L) 38 Troponin (0.00 - 1.5 ng/mL) <0.05 Total Protein (6.4 - 8.2 g/dL) 6.9 Albumin (3.3 - 5.0 g/dL) 3.6 Hematology WBC (4.5 - 11.5 K/uL) 6.1 RBC (4.00 - 5.20 M/uL) 4.33 Hgb (12.0 - 16.0 gm/dL) 13.4 Hct (36.0 - 46.0 %) 39.4 MCV (80 - 100 fL) 91 MCH (26 - 34 pg) 31 RDW (11.6 - 14.8 %) 13.2 Neut % (Auto) (50 - 75 %) 50.9 Lymph % (Auto) (25 - 40 %) 38.9 [place] % (Auto) (3 - 14 %) 6.6 Eos % (Auto) (0 - 4 %) 2.9 Baso % (Auto) (0 - 2 %) 0.7 Plt Count, EDTA (150 - 400 K/uL) 252 PUBS MCHC (31 - 37 g/dL) 34 Microbiology Date/Time Procedure - Status Source Growth 07/10 UNK MRSA Screen - ORD NOSE Imaging CT Scan Head IMPRESSION: 1. A few ill-defined white matter hypodensities in the left frontal lobe suspicious for acute/subacute small-vessel ischemic events. 2. There are at least two well-defined areas, one in left thalamus/internal capsule, and the other left basal ganglia/external capsule suggestive of remote lacunar infarcts. 3. No evidence of acute hemorrhage or mass effect. 4. Findings discussed with Dr. Menjivar at 1942 hours. Dictated by: IRMA BENOIT MD D: STEFANIA;07/09/161948 Chest X-Ray IMPRESSION: 1. Low lung volumes. 2. Probable retrocardiac atelectasis versus consolidation. Correlate clinically. Dictated by: IRMA BENOIT MD D: STEFANIA;07/09/162009 Carotid Doppler and Ultrasound-Bilateral MPRESSION: 1. No hemodynamically significant stenosis in either carotid system. 2. Mild noncalcified plaque in the carotid bulbs. The patient may benefit from statin therapy. 3. Antegrade vertebral artery flow bilaterally. Dictated by: IRMA BENOIT MD D: STEFANIA;07/09/16 6489 Assessment and Plan Problem List 1. TIA (transient ischemic attack) Status Acute Onset Date Unknown Plan -Patient presents with history of transient speech difficulty and increased difficulty with ambulation -Symptoms mild -Completely resolved at this time -CT scan shows no acute changes -Carotid Doppler and ultrasound unremarkable -Consider MRI in a.m. -Aspirin 325 mg by mouth daily -Physical therapy consultation -No swallowing difficulties, cardiac/consistent carbohydrate diet. 2. Hyperlipidemia Status Chronic Onset Date Unknown Plan -Patient with history of hyperlipidemia -Continue Lipitor 80 mg by mouth daily -Monitor 3. Hypertension Status Chronic Onset Date Unknown Plan -Patient with history of hypertension -Continue lisinopril 10 mg by mouth daily -Low-salt diet -Monitor 4. Diabetes mellitus Status Chronic Onset Date Unknown Plan -Patient with history of type 2 diabetes mellitus -Insulin sliding scale -Place patient back on Levemir/Humalog when taking well orally -Check hemoglobin A1c Current status: Fair, unstable Anticipated discharge date: Anticipated discharge in 24-48 hours Anticipated discharge placement: Home Patient care time: Time spent in chart review, patient interview, physical exam, CPOE, and care documentation: 70 minutes Visit to patient today: 2 Complexity of care: High Initial patient evaluation: Emergency department E&M Codes Admission: Obsv-Comp/High/[id number]
--- NOTE | 2016-07-09 23:19 | DIAGNOSTIC IMAGING REPORT ---
PROCEDURE: US BILATERAL CAROTID DOPPLER INDICATION: STROKE/CVA TECHNIQUE: Color Doppler duplex imaging of the carotid and vertebral vessels. COMPARISON: None. FINDINGS: Right carotid system: Mild noncalcified plaque extending from the carotid bulb into the proximal internal carotid artery without causing significant luminal stenosis. Wave forms remain normal. Left carotid system: Mild noncalcified plaque at the carotid bulb carotid artery. Maintenance of normal wave forms. Vertebral System: Antegrade vertebral artery flow bilaterally. Right common carotid artery peak systolic velocity 59 cm/second. Right internal carotid artery peak systolic velocity 69 cm/second. Right external carotid artery peak systolic velocity 110 cm/second. Right hwaawtmi-au-tpwnkv carotid artery ratio 1.2 Right vertebral artery peak systolic velocity 63 cm/second. Left common carotid artery peak systolic velocity 65 cm/second. Left internal carotid artery peak systolic velocity 55 cm/second. Left external carotid artery peak systolic velocity 92 cm/second. Left wyvttdpa-jf-qxolni carotid artery ratio 0.8 Left vertebral artery peak systolic velocity 47 cm/second. IMPRESSION: 1. No hemodynamically significant stenosis in either carotid system. 2. Mild noncalcified plaque in the carotid bulbs. The patient may benefit from statin therapy. 3. Antegrade vertebral artery flow bilaterally. Velocity criteria are extrapolated from diameter data as defined by the Society of Radiologists in Ultrasound Consensus Conference, Radiology 2003; 229; 340-346.
--- NOTE | 2016-07-09 23:19 | DIAGNOSTIC IMAGING REPORT ---
PROCEDURE: US BILATERAL CAROTID DOPPLER INDICATION: STROKE/CVA TECHNIQUE: Color Doppler duplex imaging of the carotid and vertebral vessels. COMPARISON: None. FINDINGS: Right carotid system: Mild noncalcified plaque extending from the carotid bulb into the proximal internal carotid artery without causing significant luminal stenosis. Wave forms remain normal. Left carotid system: Mild noncalcified plaque at the carotid bulb carotid artery. Maintenance of normal wave forms. Vertebral System: Antegrade vertebral artery flow bilaterally. Right common carotid artery peak systolic velocity 59 cm/second. Right internal carotid artery peak systolic velocity 69 cm/second. Right external carotid artery peak systolic velocity 110 cm/second. Right agyjtlhj-um-qlqyyu carotid artery ratio 1.2 Right vertebral artery peak systolic velocity 63 cm/second. Left common carotid artery peak systolic velocity 65 cm/second. Left internal carotid artery peak systolic velocity 55 cm/second. Left external carotid artery peak systolic velocity 92 cm/second. Left eluzlrvz-lm-ucvluc carotid artery ratio 0.8 Left vertebral artery peak systolic velocity 47 cm/second. IMPRESSION: 1. No hemodynamically significant stenosis in either carotid system. 2. Mild noncalcified plaque in the carotid bulbs. The patient may benefit from statin therapy. 3. Antegrade vertebral artery flow bilaterally. Velocity criteria are extrapolated from diameter data as defined by the Society of Radiologists in Ultrasound Consensus Conference, Radiology 2003; 229; 340-346.
[2016-07-10] MEDS ORDERED: LEVEMIR FL100 UNIT/M SC (00:09)
[2016-07-10] MEDS ORDERED: LIPITOR80 MG PO (00:10)
[2016-07-10] MEDS ORDERED: CYMBALTA60 MG PO (00:10)
[2016-07-10] MEDS ORDERED: LISINOPRIL10 MG PO (00:10)
[2016-07-10] MEDS ORDERED: IBUPROFEN600 MG PO (00:11)
[2016-07-10] MEDS ORDERED: HUMALOG100 MG/ML SC (00:12)
[2016-07-10 02:37] VITALS: BP 146/80
[2016-07-10 06:47] VITALS: BP 165/87
[2016-07-10 09:58] VITALS: BP 143/74
[2016-07-10 10:15] VITALS: BP 120/70
--- NOTE | 2016-07-10 11:17 | ED DISCHARGE INSTRUCTIONS ---
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 Uncontrolled essential hypertension. IDDM. ADDITIONAL INFORMATION High Blood Pressure -- To Be Confirmed [No Tx] Your blood pressure was higher today than normal. Sometimes anxiety or pain can cause a temporary rise in blood pressure that later returns to normal. If your blood pressure is high on one measurement, this does not mean that you have hypertension (a chronic illness). However, you must have your blood pressure measured again within the next few days to find out if its still high. A normal blood pressure is 120/80 or less. The first (top) number is the "systolic" pressure. The second (bottom) number is the "diastolic" pressure. Hypertension exists when either the top number is 140 or higher, OR the bottom number is 90 or higher on repeated measurements. Blood pressure in the range of 120-140 (systolic) or 80-89 (diastolic) is considered "pre-hypertension". This means your are at risk for getting hypertension. You should have regular blood pressure checks to be sure your blood pressure is not rising. Home Care: Measure your blood pressure on 3 different days and write down the results. This can be done at your doctor's office or this facility. Some pharmacies and grocery stores offer automated blood pressure machines for your use. Follow Up: If your blood pressure is "high" (over 120/80) on 2 out of 3 days, you will need to follow up with your doctor for further evaluation and treatment. DO NOT PUT THIS OFF! Untreated high blood pressure increases the risk for heart attack, also known as acute myocardial infarction, or AMI, and stroke. It is a treatable condition. Get Prompt Medical Attention if any of the following occur: Chest pain or shortness of breath Severe headache Throbbing or rushing sound in the ears Nosebleed Sudden severe abdominal pain Extreme drowsiness, confusion or fainting Dizziness or vertigo (dizziness with spinning sensation) Weakness of an arm or leg or one side of the face Difficulty with speech or vision You have been given the following additional information: Hypertension, To Be Confirmed (Electronically signed by Terrell Menjivar MD 07/10/2016 11:17)
--- NOTE | 2016-07-10 11:17 | ED MAR SUMMARY ---
..... Medication Administration Record [facility] [address], [place] [id number] Patient: BRETT WALTON Visit ID: [id number] 50y, F Weight: 79.7 kg Height/Length: 63 in BMI: 31.1 ALLERGIES: Codeine, Iodine
--- NOTE | 2016-07-10 11:17 | ED MED RECONCILIATION SUMMARY ---
Patient: BRETT WALTON Medication Reconciliation Report [facility] VisitID: [id number] [address] [place] [address] 50y, F Registration Date/Time: 07/09/2016 Weight: 79.7 kg Height/Length: 63 in. BMI: 31.1 ALLERGIES: Codeine, Iodine The patient's Home Medications are listed below: THE FOLLOWING MEDICATIONS NEED TO BE RECONCILED: Albuterol Sulfate Inhalation MetFORMIN HCl Oral NovoLIN N Subcutaneous 30 units , Every AM and PM The source(s) of the original Home Medication information: Not obtained. The following Medications were given to the patient in the Emergency Department: None. The following Medications were prescribed to the patient: None.
--- NOTE | 2016-07-10 11:17 | ED DISCHARGE INSTRUCTIONS ---
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 Uncontrolled essential hypertension. IDDM. ADDITIONAL INFORMATION High Blood Pressure -- To Be Confirmed [No Tx] Your blood pressure was higher today than normal. Sometimes anxiety or pain can cause a temporary rise in blood pressure that later returns to normal. If your blood pressure is high on one measurement, this does not mean that you have hypertension (a chronic illness). However, you must have your blood pressure measured again within the next few days to find out if its still high. A normal blood pressure is 120/80 or less. The first (top) number is the "systolic" pressure. The second (bottom) number is the "diastolic" pressure. Hypertension exists when either the top number is 140 or higher, OR the bottom number is 90 or higher on repeated measurements. Blood pressure in the range of 120-140 (systolic) or 80-89 (diastolic) is considered "pre-hypertension". This means your are at risk for getting hypertension. You should have regular blood pressure checks to be sure your blood pressure is not rising. Home Care: Measure your blood pressure on 3 different days and write down the results. This can be done at your doctor's office or this facility. Some pharmacies and grocery stores offer automated blood pressure machines for your use. Follow Up: If your blood pressure is "high" (over 120/80) on 2 out of 3 days, you will need to follow up with your doctor for further evaluation and treatment. DO NOT PUT THIS OFF! Untreated high blood pressure increases the risk for heart attack, also known as acute myocardial infarction, or AMI, and stroke. It is a treatable condition. Get Prompt Medical Attention if any of the following occur: Chest pain or shortness of breath Severe headache Throbbing or rushing sound in the ears Nosebleed Sudden severe abdominal pain Extreme drowsiness, confusion or fainting Dizziness or vertigo (dizziness with spinning sensation) Weakness of an arm or leg or one side of the face Difficulty with speech or vision You have been given the following additional information: Hypertension, To Be Confirmed (Electronically signed by Terrell Menjivar MD 07/10/2016 11:17)
--- NOTE | 2016-07-10 11:17 | ED MAR SUMMARY ---
..... Medication Administration Record [facility] [address] [place], [place] [id number] Patient: BRETT WALTON Visit ID: [id number] 50y, F Weight: 79.7 kg Height/Length: 63 in BMI: 31.1 ALLERGIES: Codeine, Iodine
--- NOTE | 2016-07-10 11:17 | ED MED RECONCILIATION SUMMARY ---
Patient: BRETT WALTON Medication Reconciliation Report [facility] VisitID: [id number] [address] [place] [address] 50y, F Registration Date/Time: 07/09/2016 Weight: 79.7 kg Height/Length: 63 in. BMI: 31.1 ALLERGIES: Codeine, Iodine The patient's Home Medications are listed below: THE FOLLOWING MEDICATIONS NEED TO BE RECONCILED: Albuterol Sulfate Inhalation MetFORMIN HCl Oral NovoLIN N Subcutaneous 30 units , Every AM and PM The source(s) of the original Home Medication information: Not obtained. The following Medications were given to the patient in the Emergency Department: None. The following Medications were prescribed to the patient: None.
[2016-07-10] MEDS ORDERED: ENTERIC COATED325 M1 PO (14:02)
--- NOTE | 2016-07-10 14:05 | Provider's Discharge Care Plan ---
Problem, Goal, Plan Problem List 1. TIA due to embolism Instructions: - take medications as prescribed - follow up with you pmd as you can 2. Diabetes mellitus Instructions: Follow up as needed (- continue with insulin ) 3. Hypertension Instructions: Take meds as directed
--- NOTE | 2016-07-10 14:17 | Discharge Summary ---
Discharge Summary Report Admit Date 07/09/16 Discharge Date 07/10/16 Admission Diagnosis altered mental status and speech changes Discharge Diagnosis transient ischemic attack Brief History ase refer to the admission h&p Hospital Course Patient was admitted to the hospital and had a ct scan which did not show any acute processes. During this time as well the patient was seen to have return of normal mentation and had no issues with her gait. Patient was able to walk without stumbling and was able to go up and down a flight of stairs without any difficulty. Patient is otherwise stable and no repeat imaing is warranted at the moment. Patient will be dicharged, she will be started on aspirin seeing that she was never on it in the past. Additionally patient will follow up her primary care doctor at her convience. General Appearance Alert, Oriented X3, No acute distress Lungs Normal air movement Cardiovascular Normal S1, Normal S2, No murmurs, Gallops Abdomen Soft, No tenderness Skin No Breakdown, No Significant Lesions Neurological Normal speech, Normal tone, Sensation intact, Cranial nerves 3-12 NL Lab/Imaging Laboratory Tests 07/09 07/10 07/10 07/10 2030 0500 0529 0529 Chemistry Plasma Sodium (136 - 145 mmol/L) 139 138 Plasma Potassium (3.5 - 5.1 mmol/L) 3.7 3.7 Plasma Chloride (98 - 107 mmol/L) 102 101 CO2 (Enzymatic) (21 - 32 mmol/L) 29 28 BUN (7 - 18 mg/dL) 16 16 Creatinine (0.6 - 1.3 mg/dL) 0.7 0.7 Est GFR ( Amer) (mL/min) >60 >60 Est GFR (Non-Af Amer) (mL/min) >60 >60 Glucose (70 - 110 mg/dL) 256 252 Hemoglobin A1c % (4.5 - 6.2 %) 8.6 Plasma Calcium (8.5 - 10.1 mg/dL) 9.5 9.2 Plasma Magnesium (1.8 - 2.4 mg/dL) 1.7 Total Bilirubin (0.0 - 1.0 mg/dL) 0.7 AST (15 - 37 U/L) 11 ALT (12 - 78 U/L) 21 Alkaline Phosphatase (46 - 116 U/L) 114 Creatine Kinase (24 - 260 U/L) 38 Troponin (0.00 - 1.5 ng/mL) <0.05 Total Protein (6.4 - 8.2 g/dL) 6.9 Albumin (3.3 - 5.0 g/dL) 3.6 Triglycerides (30 - 200 mg/dL) Cancelled 136 Cholesterol (140 - 200 mg/dL) Cancelled 176 LDL Cholesterol, Calc (mg/dL) Cancelled 105 HDL Cholesterol (32 - 96 mg/dL) Cancelled 44 LDL/HDL Ratio Cancelled 2.4 Cholesterol/HDL Ratio Cancelled 4.0 Coronary Risk Interp (0.4 - 1.0) Cancelled 0.8 Hematology WBC (4.5 - 11.5 K/uL) 6.1 RBC (4.00 - 5.20 M/uL) 4.33 Hgb (12.0 - 16.0 gm/dL) 13.4 Hct (36.0 - 46.0 %) 39.4 MCV (80 - 100 fL) 91 MCH (26 - 34 pg) 31 RDW (11.6 - 14.8 %) 13.2 Neut % (Auto) (50 - 75 %) 50.9 Lymph % (Auto) (25 - 40 %) 38.9 Ross % (Auto) (3 - 14 %) 6.6 Eos % (Auto) (0 - 4 %) 2.9 Baso % (Auto) (0 - 2 %) 0.7 Plt Count, EDTA (150 - 400 K/uL) 252 PUBS MCHC (31 - 37 g/dL) 34 Microbiology Date/Time Procedure - Status Source Growth 07/10 0030 MRSA Screen - RECD NOSE Discharge Instructions/Meds - take medications as prescribed - follow up with your primary care doctor
== END 2016-07-10 16:00 | disposition home or self-care (01) ==
LOC: ED SRH 19:18 → ACUTE2 SRH 21:16 → TRANS SRH 21:16 → ACUTE2 SRH 07-10 00:18
PROVIDERS: ADMIT Family Medicine
DX: G45.9 Transient cerebral ischemic attack, unspecified (principal); I10 Essential (primary) hypertension; E11.9 Type 2 diabetes mellitus without complications; E78.5 Hyperlipidemia, unspecified; I69.992 Facial weakness following unspecified cerebrovascular disease; I69.951 Hemiplegia and hemiparesis following unspecified cerebrovascular disease affecting right dominant side; Z79.4 Long term (current) use of insulin
CPT/HCPCS: 29230; 29243; 29244; 29251; 90047; 90074; 90098; 90100; 90616; 91286; 92132; 92610; 92690; 92720; 95059